=== PATIENT | female | born 1980 | race Hispanic/Latino ===

== ENCOUNTER 2018-12-14 13:45 | Emergency (ER) | payer BC, SELFPAY ==
[2018-12-14] MEDS ORDERED: KETOROLAC 30 MG/ML INJ ONE (14:16)
[2018-12-14] MEDS ORDERED: NA CHLORIDE 0.9% 1,000 ML ONE (14:16)
[2018-12-14] MEDS ORDERED: ONDANSETRON 4 MG/2 ML VIAL ONE (14:16)
[2018-12-14 14:38] LABS: Basophils % 0.9 % (0-1.3); Hematocrit 36.1 % (36.0-45.0); Lymphocytes % 31.3 % (15.3-44.8); MPV 7.7 fL (7.6-11.3); RBC Red Blood Cell Count 4.28 M/uL (3.86-4.86)
[2018-12-14 15:02] LABS: ALT/SGPT 42 U/L (12-78); AST/SGOT 32 U/L (15-37); Albumin 4.1 g/dL (3.4-5.0); Alkaline Phosphatase 112 U/L (45-117); BUN Blood Urea Nitrogen 10 mg/dL (7-18); Bicarbonate 27 mmol/L (21-32); Bilirubin Direct < 0.1 mg/dL (0-0.2); Bilirubin Total 0.4 mg/dL (0.2-1.0); Glucose Level 90 mg/dL (74-106); Lipase 115 U/L (73-393); Potassium 3.8 mmol/L (3.5-5.1); Protein, Total 8.3 g/dL (6.4-8.2); Sodium Level 138 mmol/L (136-145)
--- NOTE | 2018-12-14 16:35 | EDPHYS ---
Physician Documentation [facility] Name: Lolis Almodovar Age: 38 yrs Sex: Female : 1980 Arrival Date: 12/14/2018 Time: 13:48 Bed 16 Private MD: ED Physician Patricio Will HPI: 12/14 14:29 This 38 yrs old Female presents to ER via Ambulatory with complaints of kb Abdominal Pain, Nausea, Shoulder Pain. 14:29 The patient presents with abdominal pain in the upper abdomen. Onset: The kb symptoms/episode began/occurred 1 week(s) ago. The symptoms do not radiate. Associated signs and symptoms: Pertinent positives: nausea. The symptoms are described as constant. Modifying factors: The symptoms are alleviated by nothing, the symptoms are aggravated by food. Severity of pain: At its worst the pain was moderate in the emergency department the pain is unchanged. The patient has not experienced similar symptoms in the past. The patient has not recently seen a physician. Historical: - Allergies: 13:58 Depakote; sv - PMHx: 13:58 Anxiety; sv - PSHx: 13:58 c section; R knee; sv - Immunization history:: Adult Immunizations up to date. - Social history:: Smoking status: Patient/guardian denies using tobacco. - Ebola Screening: : Patient negative for fever greater than or equal to 101.5 degrees Fahrenheit, and additional compatible Ebola Virus Disease symptoms Patient denies exposure to infectious person Patient denies travel to an Ebola-affected area in the 21 days before illness onset No symptoms or risks identified at this time. ROS: 14:28 Constitutional: Negative for fever, chills, and weight loss, ENT: Negative for injury, kb pain, and discharge, Neck: Negative for injury, pain, and swelling, Cardiovascular: Negative for chest pain, palpitations, and edema, Respiratory: Negative for shortness of breath, cough, wheezing, and pleuritic chest pain, Back: Negative for injury and pain, : Negative for injury, bleeding, discharge, and swelling, MS/Extremity: Negative for injury and deformity, Skin: Negative for injury, rash, and discoloration, Neuro: Negative for headache, weakness, numbness, tingling, and seizure. 14:28 Abdomen/GI: Positive for abdominal pain, nausea, Negative for vomiting, diarrhea, constipation, abdominal cramps, abdominal distension, anorexia. Exam: 14:29 Constitutional: This is a well developed, well nourished patient who is awake, alert, kb and in no acute distress. Head/Face: Normocephalic, atraumatic. ENT: Nares patent. No nasal discharge, no septal abnormalities noted. Tympanic membranes are normal and external auditory canals are clear. Oropharynx with no redness, swelling, or masses, exudates, or evidence of obstruction, uvula midline. Mucous membranes moist. Neck: Trachea midline, no thyromegaly or masses palpated, and no cervical lymphadenopathy. Supple, full range of motion without nuchal rigidity, or vertebral point tenderness. No Meningismus. Chest/axilla: Normal chest wall appearance and motion. Nontender with no deformity. No lesions are appreciated. Cardiovascular: Regular rate and rhythm with a normal S1 and S2. No gallops, murmurs, or rubs. Normal PMI, no JVD. No pulse deficits. Respiratory: Lungs have equal breath sounds bilaterally, clear to auscultation and percussion. No rales, rhonchi or wheezes noted. No increased work of breathing, no retractions or nasal flaring. Abdomen/GI: Soft, non-tender, with normal bowel sounds. No distension or tympany. No guarding or rebound. No evidence of tenderness throughout. Back: No spinal tenderness. No costovertebral tenderness. Full range of motion. Skin: Warm, dry with normal turgor. Normal color with no rashes, no lesions, and no evidence of cellulitis. MS/ Extremity: Pulses equal, no cyanosis. Neurovascular intact. Full, normal range of motion. Neuro: Awake and alert, GCS 15, oriented to person, place, time, and situation. Cranial nerves II-XII grossly intact. Motor strength 5/5 in all extremities. Sensory grossly intact. Cerebellar exam normal. Normal gait. Vital Signs: 13:59 BP 130 / 86; Pulse 82; Resp 16; Temp 98.4; Pulse Ox 100% ; Height 4 ft. 11 in. (149.86 sv cm); 15:01 BP 107 / 65; Pulse 76; Resp 18; Pulse Ox 99% on R/A; Pain 4/10; em 16:11 BP 117 / 77; Pulse 64; Resp 18; Pulse Ox 99% on R/A; ca1 MDM: 14:00 Patient medically screened. kb 14:28 Data reviewed: vital signs, nurses notes. Data interpreted: Pulse oximetry: on room air kb is 100 %. Interpretation: normal. 16:33 Counseling: I had a detailed discussion with the patient and/or guardian regarding: the kb historical points, exam findings, and any diagnostic results supporting the discharge/admit diagnosis, lab results, radiology results, the need for outpatient follow up, a family practitioner, to return to the emergency department if symptoms worsen or persist or if there are any questions or concerns that arise at home. 12/14 14:06 Order name: Basic Metabolic Panel; Complete Time: 15:02 kb 12/14 14:06 Order name: CBC with Diff; Complete Time: 14:54 kb 12/14 14:06 Order name: Hepatic Function; Complete Time: 15:02 kb 12/14 14:06 Order name: Lipase; Complete Time: 15:02 kb 12/14 14:30 Order name: Troponin (emerg Dept Use Only); Complete Time: 15:12 kb 12/14 15:28 Order name: US Abdomen Limited kb 12/14 14:06 Order name: IV Saline Lock; Complete Time: 14:34 kb 12/14 14:06 Order name: Labs collected and sent; Complete Time: 14:34 kb 12/14 14:30 Order name: EKG; Complete Time: 14:31 kb 12/14 14:30 Order name: EKG - Nurse/Tech; Complete Time: 14:46 kb Administered Medications: 14:29 Drug: NS 0.9% 1000 ml Route: IV; Rate: 1000 ml; Site: left antecubital; aa5 15:47 Follow up: IV Status: Completed infusion; IV Intake: 1000ml em 14:29 Drug: Zofran 4 mg Route: IVP; Site: left antecubital; aa5 15:46 Follow up: Response: No adverse reaction; Nausea is decreased em 14:31 Drug: TORadol - Ketorolac 15 mg Route: IVP; Site: left antecubital; aa5 15:46 Follow up: Response: No adverse reaction; Pain is decreased em Disposition: 17:29 Co-signature as Attending Physician, Patricio Will MD. rn Disposition: 12/14/18 16:34 Discharged to Home. Impression: Upper abdominal pain, unspecified. - Condition is Stable. - Discharge Instructions: Abdominal Pain, Adult, [id number]. - Prescriptions for Bentyl 20 mg Oral Tablet - take 1 tablet by ORAL route every 6 hours As needed; 20 tablet. Zofran 4 mg Oral Tablet - take 1 tablet by ORAL route every 6 hours As needed; 20 tablet. - Medication Reconciliation Form, Thank You Letter, Antibiotic Education, Prescription Opioid Use form. - Follow up: Emergency Department; When: As needed; Reason: Worsening of condition. Follow up: Private Physician; When: 2 - 3 days; Reason: Recheck today's complaints, Continuance of care, Re-evaluation by your physician. Signatures: Dispatcher [employer] EDMS Kaity Sanchez, VIDEO PLAYER MECHANIC-C VIDEO PLAYER MECHANIC-Deya Still, RN RN Russ Jean, QUANTITATIVE ANALYST QUANTITATIVE ANALYST em Patricio Will MD MD rn Calderon, Audri, RN RN aa5 Corrections: (The following items were deleted from the chart) 16:50 16:34 12/14/2018 16:34 Discharged to Home. Impression: Upper abdominal pain, em unspecified. Condition is Stable. Forms are Medication Reconciliation Form, Thank You Letter, Antibiotic Education, Prescription Opioid Use. Follow up: Emergency Department; When: As needed; Reason: Worsening of condition. Follow up: Private Physician; When: 2 - 3 days; Reason: Recheck today's complaints, Continuance of care, Re-evaluation by your physician. kb
--- NOTE | 2018-12-14 16:35 | ER ---
Nurse's Notes [facility] Name: oLlis Almodovar Age: 38 yrs Sex: Female : 1980 Arrival Date: 12/14/2018 Time: 13:48 Bed 16 Private MD: Diagnosis: Upper abdominal pain, unspecified Presentation: 12/14 13:57 Presenting complaint: Patient states: upper abd pain started about a week ago and is sv now having nausea. Reports taking Pepto bismol for the pain Sunday and since then has been having black stools. Transition of care: patient was not received from another setting of care. Onset of symptoms was November 2018. Risk Assessment: Do you want to hurt yourself or someone else? Patient reports no desire to harm self or others. Care prior to arrival: None. 13:57 Method Of Arrival: Ambulatory sv 13:57 Acuity: ROSALVA 3 sv 14:20 Initial Sepsis Screen: Does the patient meet any 2 criteria? No. Patient's initial em sepsis screen is negative. Does the patient have a suspected source of infection? No. Patient's initial sepsis screen is negative. Historical: - Allergies: 13:58 Depakote; sv - PMHx: 13:58 Anxiety; sv - PSHx: 13:58 c section; R knee; sv - Immunization history:: Adult Immunizations up to date. - Social history:: Smoking status: Patient/guardian denies using tobacco. - Ebola Screening: : Patient negative for fever greater than or equal to 101.5 degrees Fahrenheit, and additional compatible Ebola Virus Disease symptoms Patient denies exposure to infectious person Patient denies travel to an Ebola-affected area in the 21 days before illness onset No symptoms or risks identified at this time. Screenin:20 Abuse screen: Denies threats or abuse. Nutritional screening: No deficits noted. em Tuberculosis screening: No symptoms or risk factors identified. Fall Risk None identified. Assessment: 14:20 General: Appears in no apparent distress. comfortable, Behavior is calm, cooperative, em Denies fever. Pain: Complains of pain in abdomen and left shoulder Pain currently is 7 out of 10 on a pain scale. Neuro: Level of Consciousness is awake, alert, obeys commands, Oriented to person, place, time, situation, Appropriate for age. Cardiovascular: Heart tones S1 S2 present Capillary refill < 3 seconds Patient's skin is warm and dry. Chest pain is denied. Respiratory: Airway is patent Respiratory effort is even, unlabored, Respiratory pattern is regular, symmetrical. GI: Abdomen is flat, Bowel sounds present X 4 quads. Abd is soft X 4 quads Abdomen is tender to palpation X 4 quads. Reports nausea, Patient currently denies diarrhea. : Denies burning with urination. Derm: Skin is intact, is healthy with good turgor, Skin is pink, warm \T\ dry. Musculoskeletal: Capillary refill < 3 seconds, Range of motion: intact in all extremities. 14:20 Reassessment: I agree with assessment completed by Russ Camara LVN . aa5 15:01 Reassessment: Patient appears in no apparent distress at this time. Patient and/or em family updated on plan of care and expected duration. Pain level reassessed. Patient is alert, oriented x 3, equal unlabored respirations, skin warm/dry/pink. rates pain 5/10 Patient states feeling better. Patient states symptoms have improved. 16:11 Reassessment: Patient appears in no apparent distress at this time. Patient and/or ca1 family updated on plan of care and expected duration. Pain level reassessed. Patient is alert, oriented x 3, equal unlabored respirations, skin warm/dry/pink. pending US. Vital Signs: 13:59 BP 130 / 86; Pulse 82; Resp 16; Temp 98.4; Pulse Ox 100% ; Height 4 ft. 11 in. (149.86 sv cm); 15:01 BP 107 / 65; Pulse 76; Resp 18; Pulse Ox 99% on R/A; Pain 4/10; em 16:11 BP 117 / 77; Pulse 64; Resp 18; Pulse Ox 99% on R/A; ca1 ED Course: 13:48 Patient arrived in ED. mr 13:57 Triage completed. sv 13:59 Arm band placed on. sv 14:00 Kaity Sanchez FNP-C is PHCP. kb 14:00 Patricio Will MD is Attending Physician. kb 14:05 Russ Camara LVN is Primary Nurse. em 14:20 Patient has correct armband on for positive identification. Placed in gown. Bed in low em position. Call light in reach. Adult w/ patient. Pulse ox on. NIBP on. 14:28 Initial lab(s) drawn, by me, sent to lab. Inserted saline lock: 20 gauge in left em antecubital area, using aseptic technique. Blood collected. 16:38 Ultrasound completed. Patient tolerated well. Notified FLASH DEVELOPER/PA kaity. sg3 16:38 US Abdomen Limited In Process Unspecified. EDMS 16:48 No provider procedures requiring assistance completed. IV discontinued, intact, em bleeding controlled, No redness/swelling at site. Pressure dressing applied. Administered Medications: 14:29 Drug: NS 0.9% 1000 ml Route: IV; Rate: 1000 ml; Site: left antecubital; aa5 15:47 Follow up: IV Status: Completed infusion; IV Intake: 1000ml em 14:29 Drug: Zofran 4 mg Route: IVP; Site: left antecubital; aa5 15:46 Follow up: Response: No adverse reaction; Nausea is decreased em 14:31 Drug: TORadol - Ketorolac 15 mg Route: IVP; Site: left antecubital; aa5 15:46 Follow up: Response: No adverse reaction; Pain is decreased em Intake: 15:47 IV: 1000ml; Total: 1000ml. em Outcome: 16:34 Discharge ordered by MD. kb 16:48 Discharged to home ambulatory. em 16:48 Condition: good 16:48 Discharge instructions given to patient, family, Instructed on discharge instructions, follow up and referral plans. medication usage, Demonstrated understanding of instructions, follow-up care, medications, Prescriptions given X 2. 16:50 Patient left the ED. em Signatures: Dispatcher [employer] EDCT Kaity Sanchez, WIND TURBINE ERECTOR-C WIND TURBINE ERECTOR-Deya Still RN RN sv Rivera, Mary mr Munoz, Edgar, MATERIAL MIXER MATERIAL MIXER em Keek Muniz RN RN aa5 Adela Connell sg3 Kimberly Shah RN RN ca1 Corrections: (The following items were deleted from the chart) 13:59 13:57 Presenting complaint: Patient states: upper abd pain started about a week ago and sv is now having nausea. sv
--- NOTE | 2018-12-14 16:50 | RAD REPORT ---
EXAM DESCRIPTION: US - Abdomen Exam Limited - 12/14/2018 4:38 pm CLINICAL HISTORY: Abdominal pain. COMPARISON: None. FINDINGS: The gallbladder wall is not thickened. A gallstone is not seen. The biliary tree is normal caliber. IMPRESSION: Unremarkable gallbladder ultrasound.
[2018-12-14 16:56] VITALS: TEMP 98.4
[2018-12-14 16:58] VITALS: O2SAT 99
[2018-12-14 16:59] VITALS: BP 117/77
--- NOTE | 2018-12-15 19:54 | EKG ---
Test Date: 2018-12-14 Test Time: 14:40:54 Car Supervisor: LUIS FERNANDO MEASUREMENT RESULTS: Intervals: Rate: 70 IL: 152 QRSD: 82 QT: 408 QTc: 440 [place]: P: 22 IL: 152 QRS: 70 T: 3 INTERPRETIVE STATEMENTS: Normal sinus rhythm Normal ECG Compared to ECG 06/24/2008 10:54:53 No significant changes Electronically Signed On 12-15-18 19:52:58 CDT by Guilherme Peng
== END 2018-12-14 16:50 | disposition home or self-care (01) ==
LOC: ER 13:45
DX: R10.10 Upper abdominal pain, unspecified (principal); Z88.8 Allergy status to other drugs, medicaments and biological substances
CPT/HCPCS: 36415; 76705; 80048; 80076; 83690; 84484; 85025; 93005; 96361; 96374; 96375; 99284; J2405; J7030

== ENCOUNTER 2019-06-16 07:25 | Day surgery (SDC) | payer BC ==
[2019-06-16] MEDS ORDERED: Ringers Lactate 1,000 ML IV ONE (07:52)
[2019-06-16] MEDS ORDERED: CEFOXITIN/SWI 1gm 1 GM/10 ML SYR ONE (07:52)
[2019-06-16 07:57] LABS: Absolute Lymphocytes (CBC) 2.9 K/uL (0.7-4.9); Basophils % 0.9 % (0-1.3); Hematocrit 36.5 % (36.0-45.0); Lymphocytes % 34.8 % (15.3-44.8); MPV 7.8 fL (7.6-11.3); RBC Red Blood Cell Count 4.35 M/uL (3.86-4.86)
[2019-06-16] MEDS ORDERED: FENTANYL CITR 100 MCG/2 ML ONE (08:05)
[2019-06-16] MEDS ORDERED: dexAMETHasone 10 MG/ML VIAL ONE (08:05)
[2019-06-16] MEDS ORDERED: propofoL 200 MG/20 ML VIAL IV ONE (08:05)
[2019-06-16] MEDS ORDERED: MIDAZOLAM HCL 2 MG/2 ML INJ ONE (08:05)
[2019-06-16] MEDS ORDERED: LIDOCAINE 2% MPF 5 ML VIAL ONE (08:06)
[2019-06-16] MEDS ORDERED: ROCURONIUM 50 MG/5 ML VIAL IV ONE (08:06)
[2019-06-16] MEDS ORDERED: ONDANSETRON 4 MG/2 ML VIAL ONE ×2 (08:06→11:42)
[2019-06-16 08:13] LABS: ALT/SGPT 51 U/L (12-78); AST/SGOT 29 U/L (15-37); Alkaline Phosphatase 106 U/L (45-117); BUN Blood Urea Nitrogen 13 mg/dL (7-18); Bicarbonate 25 mmol/L (21-32); Glucose Level 111 mg/dL (74-106); Sodium Level 140 mmol/L (136-145)
[2019-06-16 08:14] LABS: Albumin 3.8 g/dL (3.4-5.0); Amylase Level 33 U/L (25-115); Bilirubin Direct < 0.1 mg/dL (0-0.2); Bilirubin Total 0.3 mg/dL (0.2-1.0); Lipase 107 U/L (73-393); Protein, Total 7.9 g/dL (6.4-8.2)
--- NOTE | 2019-06-16 09:38 | RAD REPORT ---
EXAM DESCRIPTION: Yudi Corona (2 Views)06/16/2019 7:57 am CLINICAL HISTORY: Abdominal pain. Preop COMPARISON: 2007 FINDINGS: The lungs appear clear of acute infiltrate. The heart is normal size IMPRESSION: No acute abnormalities displayed
[2019-06-16] MEDS ORDERED: KETOROLAC 30 MG/ML INJ ONE (09:55)
[2019-06-16] MEDS ORDERED: GLYCOPYRROLATE 0.2 MG/ML SYR ONE (09:55)
[2019-06-16] MEDS ORDERED: NEOSTIGMINE 1 MG/ML -5 ML ONE (09:56)
[2019-06-16] MEDS ORDERED: Mastisol Adhesive Liq ONE (10:03)
--- NOTE | 2019-06-16 10:05 | P.BOP ---
Preoperative diagnosis: intractable RUQ abd pain, acute cholecystitis, Postoperative diagnosis: same Primary procedure: Laparoscopic cholecystectomy Sandwich [employer] Drink Cart Operator: Kylee Conley (Judah) Estimated blood loss: <10cc Specimen: gb Findings: friable inflammed GB wall Anesthesia: General Complications: None Drain(s): Other Transferred to: Recovery Room Condition: Good
[2019-06-16] MEDS ORDERED: HYDROMORPHONE HCL 1 MG/ML INJ ONE (10:41)
[2019-06-16 10:53] VITALS: O2SAT 97
[2019-06-16] MEDS ORDERED: CODEINE 30MG/APAP 300MG TAB ONE (11:42)
[2019-06-16 12:03] VITALS: BP 132/66; TEMP 97
--- NOTE | 2019-06-16 15:05 | OP ---
Date of Procedure: 06/16/2019 Surgeon: King Gomez MD Supervisor Sewing Department: RAMON Isaac. Preoperative Diagnoses: Acute cholecystitis, intractable and recurrent right upper quadrant abdomin al pain, biliary dyskinesia. Postoperative Diagnosis: Acute cholecystitis, intractable and recurrent right upper quadrant abdomin al pain, biliary dyskinesia, acute cholecystitis. Procedure: Laparoscopic cholecystectomy. Complications: None. History Of Present Illness: This is the case of a 38-year-old patient who came to my office with epi gastric right quadrant pain radiating to the back associated with nausea, vomiting. Patient has been seen by lab head who had the workup done, EGD, colonoscopies and still the pain is worse a nd worse. She about a little bit more than a week ago, was seen in the office. Due to the national emergency, we are trying to treat her conservatively, changing her diet, but even though, she states she has not looked at the Swedish fries in a long time, she is still having this pain to the point rig ht now that she wants surgery done. The government allowed to the urgent cases. So, we currently be lieve she does qualify for that since it is affecting the quality of life, she cannot eat. The benef its, alternatives, and risks of laparoscopic, possible open cholecystectomy fully explained to the pa tient, which include but are not limited to infection, bleeding, damage to adjacent structures, anest hesia complication, choledocholithiasis, bile leak, pancreatitis, MD, and even . She also under stands this may not relieve the symptoms. She might need more than one surgical intervention. She u nderstood, signed a consent. She understands the risks of nia coronavirus and at the same ti me, she cannot live like this and she has too much pain, so we booked the case. Description Of Procedure: Patient was brought to the operating room, placed in supine position. Ane sthesia was done without complication. Abdominal area was prepped and draped in sterile fashion. Ma rcaine 0.5% was injected for local anesthetic, followed by sharp incision of the skin in the infraumb ilical region. Incision was carried down to fascia, which was opened under direct vision. Peritoneu m was encountered, opened under direct vision. Vicryl #1 placed inside the fascia. Amberly trocar wa s carefully introduced. No bleeding was obtained. I placed 3 more trocars, 5 mm each one of them, o ne in the epigastric, other 2 in the right upper quadrant under direct visualization. There were sandra e omental adhesions to the gallbladder that carefully were removed. The gallbladder wall looks friab le and thickened consistent with cholecystitis. At that moment, I put the grasper in the fundus of t he gallbladder, another grasper in the infundibulum, retracting the gallbladder in the inferolateral fashion exposing the triangle of Calot, obtaining critical view. The cystic duct and cystic artery w ere clearly isolated, freed circumferentially and a connection between those and the gallbladder was clearly identified. I proceeded to ligate those by using at least 3 clips proximal, 1 clip distal, l igation in middle. Same was done with the cystic artery. No bile leak. No bleeding. The gallbladd er was removed from liver using Bovie cauterizer and removed from abdominal cavity using EndoCatch th rough umbilical incision. The area was inspected once again. The cauterization of the liver was don e, in the area also of the gallbladder fossa. No bile leak. No bleeding. Clips were intact. At th at moment, I proceeded to remove the trocars under direct vision. Deflated the pneumoperitoneum. Cl osed the fascia with #1 Vicryl, irrigated subcutaneous incision, closed that with 3-0 chromic and ski n in a subcuticular fashion with 3-0 chromic and Steri-Strips on top. Sponge count and instrument co unts were correct. Patient tolerated the procedure well. Patient was sent to Recovery in stable con dition. EBONY/RKISTA Voice ID: [id number] Report ID: [id number]
--- NOTE | 2019-06-16 20:12 | EKG ---
Test Date: 2019-06-16 Test Time: 07:59:08 Bus Driver School: [employer] MEASUREMENT RESULTS: Intervals: Rate: 71 MI: 144 QRSD: 84 QT: 388 QTc: 421 [place]: P: 12 MI: 144 QRS: 10 T: 22 INTERPRETIVE STATEMENTS: Normal sinus rhythm with sinus arrhythmia Cannot rule out Anterior infarct, age undetermined Abnormal ECG No previous ECG available for comparison Electronically Signed On 06-16-19 20:11:00 CDT by Guilherme Peng
--- NOTE | 2019-06-16 20:56 | DS ---
Date of Discharge: 06/16/2019 Preoperative Diagnosis: Right upper quadrant abdominal pain, acute cholecystitis, biliary dyskinesia . Postoperative Diagnosis: Right upper quadrant abdominal pain, acute cholecystitis, biliary dyskinesi a. Procedure: Laparoscopic cholecystectomy. Disposition: Home. Activity: As tolerated, no heavy lifting. Followup: Follow up in my office in 1 week. Call for appointment at [phone]. Keep that area dry f or 48 hours, then may shower, keep steri strips intact. Medications: Include Augmentin 875 p.o. q.12 hours, and Tylenol No. 3 q.4 hours p.r.n. pain. EBONY/KRISTA Voice ID: [id number] Report ID: [id number]
== END 2019-06-16 13:00 | disposition home or self-care (01) ==
LOC: OR 07:25
PROVIDERS: ATTEND Surgery
PROC: 0FT44ZZ Resection of Gallbladder, Percutaneous Endoscopic Approach (ICD-10-PCS; principal; 2019-06-16 08:30)
DX: K81.2 Acute cholecystitis with chronic cholecystitis (principal); K82.8 Other specified diseases of gallbladder; K21.9 Gastro-esophageal reflux disease without esophagitis; Z88.8 Allergy status to other drugs, medicaments and biological substances; Z83.3 Family history of diabetes mellitus; Z82.49 Family history of ischemic heart disease and other diseases of the circulatory system; Z80.1 Family history of malignant neoplasm of trachea, bronchus and lung; Z80.49 Family history of malignant neoplasm of other genital organs
CPT/HCPCS: 93005; 85025; 80048; 36415; 82150; 81025; 80076; 88304; 83690; 71046; 47562; J2704; J2250; J3010; J1100; J1170; J2710; J7120; J2405 ×2

== ENCOUNTER 2021-07-26 23:21 | Emergency (ER) | payer BC ==
--- OUTSIDE RECORDS SUMMARY | 2021-07-26 23:24 | XMS REPORT | Continuity of Care Document ---
:1980 Author Organization [facility] t Address [address] [place] [address] [address] [place] [address] Care Team Providers Name Role Phone RED COTTER Attending Clinician Unavailable Problems This patient has no known problems. Allergies, Adverse Reactions, Alerts This patient has no known allergies or adverse reactions. Medications This patient has no known medications. Procedures This patient has no known procedures. Encounters Start End Encounter Admission Attending Care Care Encounter Source Date/Time Date/Time Type Type Clinicians Facility Department ID 2019-09-01 2019-09-01 Outpatient [facility] [id number] [address] [place] 00:00:00 00:00:[address] Results This patient has no known results.
[2021-07-27] MEDS ORDERED: METOCLOPRAMIDE 10 MG/2mL INJ ONE (01:06)
[2021-07-27] MEDS ORDERED: DIPHENHYDRAMINE 50 MG/ML VIAL ONE (01:07)
[2021-07-27] MEDS ORDERED: NA CHLORIDE 0.9% 1,000 ML ONE (01:07)
[2021-07-27 02:05] LABS: Urine Blood Trace-intact (Negative); Urine Glucose Negative (Negative); Urine Protein Negative (Negative); Urine Specific Gravity >=1.030 (1.005-1.030); Urine pH 6.5 (5.0-7.0)
[2021-07-27 02:05] LABS: Absolute Lymphocytes (CBC) 2.9 K/uL (0.7-4.9); Hematocrit 36.7 % (36.0-45.0); MPV 7.7 fL (7.6-11.3); RBC Red Blood Cell Count 4.28 M/uL (3.86-4.86)
[2021-07-27 02:11] LABS: Protime INR 0.97
[2021-07-27 02:29] LABS: ALT/SGPT 123 U/L (12-78); AST/SGOT 68 U/L (15-37); Albumin 4.1 g/dL (3.4-5.0); Alkaline Phosphatase 85 U/L (45-117); BUN Blood Urea Nitrogen 12 mg/dL (7-18); Bicarbonate 27 mmol/L (21-32); Bilirubin Direct < 0.1 mg/dL (0-0.2); Bilirubin Total 0.3 mg/dL (0.2-1.0); Glomerular Filtration Rate 112 ml/min (=/>90); Glucose Level 130 mg/dL (74-106); Potassium 4.4 mmol/L (3.5-5.1); Protein, Total 8.1 g/dL (6.4-8.2); Sodium Level 136 mmol/L (136-145)
[2021-07-27 02:44] LABS: Urine Bacteria <20 /HPF (<20); Urine Mucus 2+ /HPF (NONE SEEN); Urine RBC <5 /HPF (NONE SEEN)
--- NOTE | 2021-07-27 03:29 | ER ---
Nurse's Notes [facility] Name: Lolis Dillard Age: 40 yrs Sex: Female : 1980 Arrival Date: 07/26/2021 Time: 23:24 Bed 13 Private MD: Diagnosis: Headache Presentation: 07/26 23:33 Chief complaint: Patient states: I have been having headaches and I noticed a low grade jb4 fever. I saw my PCP and was put on antibiotics. The headaches came back. Nothing I was given is helping. Coronavirus screen: At this time, the client does not indicate any symptoms associated with coronavirus-19. Ebola Screen: No symptoms or risks identified at this time. Initial Sepsis Screen: Does the patient meet any 2 criteria? No. Patient's initial sepsis screen is negative. Does the patient have a suspected source of infection? No. Patient's initial sepsis screen is negative. Risk Assessment: Do you want to hurt yourself or someone else? Patient reports no desire to harm self or others. Onset of symptoms was July 26, 2021. Transition of care: patient was not received from another setting of care. 23:33 Method Of Arrival: Ambulatory 4 23:33 Acuity: ROSALVA 3 jb4 Triage Assessment: 23:35 Headache History: The patient has had previous headaches and this one is similar to jb4 previous episodes. General: Appears in no apparent distress. comfortable, Behavior is calm, cooperative. Pain: Pain currently is 10 out of 10 on a pain scale. Pain began 2-3 days ago. Also complains of photophobia. Neuro: Level of Consciousness is awake, alert, obeys commands, Oriented to person, place, time, situation. Historical: - Allergies: 23:35 Depakote; jb4 - Home Meds: 23:35 tramadol Oral [Active]; Cefuroxime Oral [Active]; Cyclobenzaprine Oral [Active]; jb4 - PMHx: 23:35 Anxiety; depression; jb4 - PSHx: 23:35 ; Cholecystectomy; jb4 - Immunization history:: Adult Immunizations up to date. - Social history:: Smoking status: Patient denies any tobacco usage or history of. Screenin/08 03:10 Abuse screen: Denies threats or abuse. Denies injuries from another. Nutritional lp1 screening: No deficits noted. Tuberculosis screening: No symptoms or risk factors identified. Fall Risk None identified. Assessment: 01:15 General: Appears uncomfortable, Behavior is appropriate for age. Pain: Complains of lp1 pain in top of head, forehead and right eye Pain currently is 8 out of 10 on a pain scale. Quality of pain is described as pressure, squeezing, Pain began gradually. Neuro: Level of Consciousness is awake, alert, obeys commands. Cardiovascular: Patient's skin is warm and dry. Respiratory: Respiratory effort is even, unlabored. GI: No signs and/or symptoms were reported involving the gastrointestinal system. : No signs and/or symptoms were reported regarding the genitourinary system. EENT: No signs and/or symptoms were reported regarding the EENT system. Derm: Skin is pink, warm \\T\\ dry. Musculoskeletal: No deficits noted. 03:08 Reassessment: Patient is alert, oriented x 3, equal unlabored respirations, skin lp1 warm/dry/pink. Patient reports improvement in headache; aware of waiting for complete results Patient states feeling better. Patient states symptoms have improved. 03:43 Reassessment: Patient is alert, oriented x 3, equal unlabored respirations, skin bb warm/dry/pink. pt verbalized understanding of and agrees to plan of care discharge instructions given pt ambulated with steady gait to exit accompanied by family. Vital Signs: 07/26 23:33 BP 140 / 91; Pulse 85; Resp 16; Temp 97.5(TE); Pulse Ox 100% on R/A; Weight 80.29 kg jb4 (R); Height 4 ft. 11 in. (149.86 cm) (R); Pain 10/10; 07/27 02:30 BP 112 / 73; Pulse 76; Temp 97.8; Pulse Ox 99% on R/A; wm 03:00 BP 102 / 62; Pulse 71; Resp 18; Pulse Ox 99% on R/A; Pain 2/10; lp1 07/26 23:33 Body Mass Index 35.75 (80.29 kg, 149.86 cm) jb4 [place] Coma Score: 03:26 Eye Response: spontaneous(4). Verbal Response: oriented(5). Motor Response: obeys mh7 commands(6). Total: 15. ED Course: 06/07 23:24 Patient arrived in ED. ja2 23:35 Triage completed. jb4 23:35 Arm band placed on right wrist. jb4 07/27 00:03 Gurvinder De Oliveira MD is Attending Physician. 7 00:55 Faith Ram, RN is Primary Nurse. lp1 01:38 CT Head Brain wo Cont In Process Unspecified. EDMS 01:50 Urine collected: clean catch specimen, COVID swab sent to lab. Inserted saline lock: 22 wm gauge in left antecubital area, using aseptic technique. Missed attempt(s): 20 gauge in right forearm. 02:09 COVID-19 SARS RT PCR (Document "Date of Onset" if Symptomatic) Sent. wm 02:33 Bed in low position. Call light in reach. Side rails up X 1. Lights dimmed. Client wm placed on continuous cardiac and pulse oximetry monitoring. NIBP monitoring applied. bus driver/monitor on. 03:10 No provider procedures requiring assistance completed. lp1 03:28 Moshe Celis MD is Referral Physician. [facility] 03:43 IV discontinued, No redness/swelling at site. Pressure dressing applied. lp1 Administered Medications: 01:58 Drug: Reglan (metoCLOPramide) 10 mg Route: IVP; Site: left antecubital; jb4 03:08 Follow up: Response: Marked relief of symptoms lp1 02:00 Drug: NS 0.9% 1000 ml Route: IV; Rate: 1000 ml; Site: left antecubital; jb4 03:44 Follow up: IV Status: Completed infusion; IV Intake: 1000ml lp1 02:01 Drug: Benadryl (diphenhydrAMINE) 50 mg Route: IVP; Site: left antecubital; jb4 03:08 Follow up: Response: Marked relief of symptoms lp1 Medication: 03:10 VIS not applicable for this client. lp1 Intake: 03:44 IV: 1000ml; Total: 1000ml. lp1 Outcome: 03:28 Discharge ordered by . 7 03:43 Discharged to home ambulatory. lp1 03:43 Condition: good 03:43 Discharge instructions given to patient, Instructed on discharge instructions, follow up and referral plans. medication usage, Demonstrated understanding of instructions, follow-up care, medications, Prescriptions given X 1. 03:44 Patient left the ED. lp1 Signatures: Dispatcher [employer] Belle Leach RN RN bb Faith Ram RN RN lp1 Henok Johansen RN RN jb4 Gurvinder De Oliveira MD MD 7 Mei Laughlin Jessica ja2 Corrections: (The following items were deleted from the chart) 01:20 07/26 23:33 Acuity: ROSALVA 4 jb4 jb4
--- NOTE | 2021-07-27 03:29 | EDPHYS ---
Physician Documentation [facility] Name: Lolis Dillard Age: 40 yrs Sex: Female : 1980 Arrival Date: 07/26/2021 Time: 23:24 Bed 13 Private MD: ED Physician Gurvinder De Oliveira HPI: 07/27 00:35 This 40 yrs old Female presents to ER via Ambulatory with complaints of mh7 Headache. 00:35 The patient complains of pain to the forehead, right cheek and left cheek. The patient 7 describes the headache as intermittent, waxing and waning. Onset: The symptoms/episode began/occurred 3 week(s) ago. 00:35 Associated signs and symptoms: Pertinent positives: Photophobia sinus congestion, sinus mh7 tenderness, Pertinent negatives: altered mental status, dizziness, fever, malaise, nausea, neck stiffness, paresthesias, rash, vision changes, vision loss, vomiting, weakness, vertigo. 00:35 Severity of symptoms: At its worst the pain was moderate, 3 day(s) ago, in the [facility] emergency department the pain has improved, moderately. Headache History: The patient has had previous headaches and this one is similar to previous episodes. The symptoms are alleviated by nothing. the symptoms are aggravated by lights, movement, noise, stress. Historical: - Allergies: 07/26 23:35 Depakote; jb4 - Home Meds: 23:35 tramadol Oral [Active]; Cefuroxime Oral [Active]; Cyclobenzaprine Oral [Active]; jb4 - PMHx: 23:35 Anxiety; depression; jb4 - PSHx: 23:35 ; Cholecystectomy; jb4 - Immunization history:: Adult Immunizations up to date. - Social history:: Smoking status: Patient denies any tobacco usage or history of. ROS: 07/27 00:35 Constitutional: Negative for fever, chills, and weight loss, Eyes: Negative for injury, mh7 pain, redness, and discharge, ENT: Negative for injury, pain, and discharge, Neck: Negative for injury, pain, and swelling, Cardiovascular: Negative for chest pain, palpitations, and edema, Respiratory: Negative for shortness of breath, cough, wheezing, and pleuritic chest pain, Abdomen/GI: Negative for abdominal pain, nausea, vomiting, diarrhea, and constipation, Back: Negative for injury and pain, : Negative for injury, bleeding, discharge, and swelling, MS/Extremity: Negative for injury and deformity, Skin: Negative for injury, rash, and discoloration, Psych: Negative for depression, anxiety, suicide ideation, homicidal ideation, and hallucinations, Allergy/Immunology: Negative for hives, rash, and allergies, Endocrine: Negative for neck swelling, polydipsia, polyuria, polyphagia, and marked weight changes, Hematologic/Lymphatic: Negative for swollen nodes, abnormal bleeding, and unusual bruising. Exam: 00:35 Constitutional: This is a well developed, well nourished patient who is awake, alert, mh7 and in no acute distress. Eyes: Pupils equal round and reactive to light, extra-ocular motions intact. Lids and lashes normal. Conjunctiva and sclera are non-icteric and not injected. Cornea within normal limits. Periorbital areas with no swelling, redness, or edema. ENT: Nares patent. No nasal discharge, no septal abnormalities noted. Tympanic membranes are normal and external auditory canals are clear. Oropharynx with no redness, swelling, or masses, exudates, or evidence of obstruction, uvula midline. Mucous membranes moist. Neck: Trachea midline, no thyromegaly or masses palpated, and no cervical lymphadenopathy. Supple, full range of motion without nuchal rigidity, or vertebral point tenderness. No Meningismus. Chest/axilla: Normal chest wall appearance and motion. Nontender with no deformity. No lesions are appreciated. Cardiovascular: Regular rate and rhythm with a normal S1 and S2. No gallops, murmurs, or rubs. Normal PMI, no JVD. No pulse deficits. Respiratory: Lungs have equal breath sounds bilaterally, clear to auscultation and percussion. No rales, rhonchi or wheezes noted. No increased work of breathing, no retractions or nasal flaring. Abdomen/GI: Soft, non-tender, with normal bowel sounds. No distension or tympany. No guarding or rebound. No evidence of tenderness throughout. Back: No spinal tenderness. No costovertebral tenderness. Full range of motion. Skin: Warm, dry with normal turgor. Normal color with no rashes, no lesions, and no evidence of cellulitis. MS/ Extremity: Pulses equal, no cyanosis. Neurovascular intact. Full, normal range of motion. Neuro: Awake and alert, GCS 15, oriented to person, place, time, and situation. Cranial nerves II-XII grossly intact. Motor strength 5/5 in all extremities. Sensory grossly intact. Cerebellar exam normal. Normal gait. Psych: Awake, alert, with orientation to person, place and time. Behavior, mood, and affect are within normal limits. Vital Signs: 07/26 23:33 BP 140 / 91; Pulse 85; Resp 16; Temp 97.5(TE); Pulse Ox 100% on R/A; Weight 80.29 kg jb4 (R); Height 4 ft. 11 in. (149.86 cm) (R); Pain 10/10; 07/27 02:30 BP 112 / 73; Pulse 76; Temp 97.8; Pulse Ox 99% on R/A; wm 03:00 BP 102 / 62; Pulse 71; Resp 18; Pulse Ox 99% on R/A; Pain 2/10; lp1 07/26 23:33 Body Mass Index 35.75 (80.29 kg, 149.86 cm) jb4 [place] Coma Score: 03:26 Eye Response: spontaneous(4). Verbal Response: oriented(5). Motor Response: obeys mh7 commands(6). Total: 15. MDM: 03:26 Differential diagnosis: cluster headache, intracerebral hemorrhage, migraine, mh7 sinusitis, tension headache. Data reviewed: vital signs, nurses notes, lab test result(s), CBC, electrolytes, urinalysis, radiologic studies, CT scan. Data interpreted: Pulse oximetry: on room air is 99 %. Interpretation: normal. Counseling: I had a detailed discussion with the patient and/or guardian regarding: the historical points, exam findings, and any diagnostic results supporting the discharge/admit diagnosis, lab results, radiology results, the need for outpatient follow up, a neurologist, to return to the emergency department if symptoms worsen or persist or if there are any questions or concerns that arise at home. Response to treatment: the patient's symptoms have resolved after treatment, the patient's blood pressure is in an acceptable range, mental status has returned to baseline, the patient no longer shows bradycardia, the patient is not short of breath, the patient is not tachycardic, the patient's pain is gone, the patient's temperature has normalized, the patient is now symptom free, patient is well hydrated. Refusal of service: The patient/guardian displays adequate decision making capability and despite a detailed discussion of alternatives, benefits, risks, and consequences refuses: Lumbar Puncture procedure. 03:28 Patient medically screened. [facility] 07/27 00:50 Order name: CBC with Diff; Complete Time: 02:27 [facility] 07/27 00:50 Order name: Basic Metabolic Panel; Complete Time: 03:14 [facility] 07/27 00:50 Order name: Protime (+inr); Complete Time: 02:27 [facility] 07/27 00:50 Order name: Ptt, Activated; Complete Time: 02:27 [facility] 07/27 00:50 Order name: LFT's; Complete Time: 03:14 [facility] 07/27 00:50 Order name: Urine Microscopic Only; Complete Time: 03:14 [facility] 07/27 00:50 Order name: COVID-19 SARS RT PCR (Document "Date of Onset" if Symptomatic); Complete [facility] Time: 03:14 07/27 00:50 Order name: CT Head Brain wo Cont [facility] 07/27 02:05 Order name: Urine Dipstick-Ancillary; Complete Time: 02:27 [facility] 07/27 00:50 Order name: Saline Lock; Complete Time: 02:11 [facility] 07/27 00:50 Order name: Urine Dipstick-Ancillary (obtain specimen); Complete Time: 03:09 [facility] 07/27 00:50 Order name: Urine Test (obtain specimen); Complete Time: 03:09 [facility] Administered Medications: 01:58 Drug: Reglan (metoCLOPramide) 10 mg Route: IVP; Site: left antecubital; jb4 03:08 Follow up: Response: Marked relief of symptoms lp1 02:00 Drug: NS 0.9% 1000 ml Route: IV; Rate: 1000 ml; Site: left antecubital; jb4 03:44 Follow up: IV Status: Completed infusion; IV Intake: 1000ml lp1 02:01 Drug: Benadryl (diphenhydrAMINE) 50 mg Route: IVP; Site: left antecubital; jb4 03:08 Follow up: Response: Marked relief of symptoms lp1 Disposition Summary: 07/27/21 03:28 Discharge Ordered Location: Home [facility] Problem: an acute exacerbation [facility] Symptoms: have improved [facility] Condition: Stable [facility] Diagnosis - Headache [facility] Followup: [facility] - With: Private Physician - When: 1 - 2 days - Reason: Worsening of condition, Recheck today's complaints, Continuance of care, Re-evaluation by your physician Followup: [facility] - With: Moshe Celis MD - When: 1 - 2 days - Reason: Worsening of condition, Recheck today's complaints, Continuance of care, Re-evaluation by your physician Discharge Instructions: - Discharge Summary Sheet [facility] - General Headache Without Cause [facility] Forms: - Medication Reconciliation Form [facility] - Thank You Letter [facility] - Antibiotic Education [facility] - Prescription Opioid Use [facility] Prescriptions: - ketorolac 10 mg Oral tablet - take 1 tablet by ORAL route every 6-8 hours As needed not to exceed 40 mg in [facility] 24hrs; 12 tablet; Refills: 0, Product Selection Permitted Signatures: Dispatcher [employer] Henok Corbett RN RN jb4 Gurvinder De Oliveira MD MD 7 Faith Ram RN lp1
[2021-07-27 03:51] VITALS: TEMP 97.8; O2SAT 99
[2021-07-27 03:53] VITALS: BP 102/62
--- NOTE | 2021-07-27 14:12 | RAD REPORT ---
EXAM DESCRIPTION: Head Brain Wo Cont 07/27/2021 2:00 AM CDT CLINICAL HISTORY: 40 years, Female, Headache, classic migraine COMPARISON: None. FINDINGS: Multiple transaxial tomograms of the brain were obtained from the base of the skull to the vertex without contrast. 2-D multiplanar reformats and the coronal and sagittal plane were performed and reviewed. This exam was performed according to our departmental dose-optimization protocol, which includes auto mated exposure control, adjustment of the mA and/or kV according to patient size and/or use of iterat davis reconstruction technique. Brain parenchyma as well as the benoit and white matter differentiation demonstrate to be unremarkable. There is no midline shift and/or mass effect. There is no evidence for acute hemorrhage. No focal ar eas of hypodensities. Lateral ventricles and cisterns displace normal appearance. No intra or ext ra axial fluid collections were seen. The calvarium is intact with no evidence for fracture. The visu alized portions of the paranasal sinuses and orbits demonstrate to be clear. IMPRESSION: No acute intracranial hemorrhage identified. Unremarkable CT scan of the head without contrast. Electronically signed by: Juan Willis MD 07/27/2021 2:01 AM CDT Due to temporary technical issues with the PACS/Fluency reporting system, reports are being signed by the in house radiologist without review as a courtesy to ensure prompt reporting. The interpreting r adiologist is fully responsible for the content of the report.
== END 2021-07-27 03:44 | disposition home or self-care (01) ==
LOC: ER 23:21
DX: R51.9 Headache, unspecified (principal); F41.9 Anxiety disorder, unspecified; F32.A Depression, unspecified; Z20.822 Contact with and (suspected) exposure to COVID-19; Z88.8 Allergy status to other drugs, medicaments and biological substances
CPT/HCPCS: 96361; 85025; 80048; 36415; 85610; 80076; 85730; 70450; 96375; 96374; 99284; U0003; J2765; J1200; J7030; 81003; 81015